=== PATIENT | female | born 1960 | race African-American/Black ===

== ENCOUNTER 2020-08-15 13:45 | Inpatient (IN) | payer MEDICAID, OTHER ==
[~2020-08-15] VITALS: Ht 165.1 cm; Wt 106.1 kg
[2020-08-15] MEDS ORDERED: VANCOMYCIN 1 G PREMIX 200 ML IV ONE (14:00)
[2020-08-15] MEDS ORDERED: PIPERACILLIN/TAZ 3.375G PREMIX 50 ML IV ONE (14:00)
[2020-08-15] MEDS ORDERED: SODIUM CHLORIDE 0.9% 1000ML BAG (SEPSIS BOLUS) IV ONE (14:00)
[2020-08-15 14:54] LABS: BASOPHILS % 0.3 % (0.0-2.0); HEMATOCRIT. 34.5 % (36.0-48.0); HEMOGLOBIN. 11.4 g/dL (12.0-16.0); MEAN CORPUSCULAR HEMOGLOBIN 27.5 pg (28.0-32.0); MEAN PLATELET VOLUME 9.3 fl (7.4-10.4); MONOCYTES % 6.6 % (2.0-8.0); NEUTROPHILS % 67.1 % (40.0-76.0); PLATELET 265 x1000/uL (130-400); RED BLOOD CELL COUNT 4.16 mill/uL (4.2-5.4); RED CELL DISTRIBUTION WIDTH 14.3 % (11.6-14.6)
[2020-08-15 14:57] LABS: CHLORIDE 109 mEq/L (98-107)
[2020-08-15] MEDS ORDERED: LEVETIRACETAM 500MG PREMIX 100 ML IV ONE (16:30)
[2020-08-15] MEDS ORDERED: LORAZEPAM 2MG/ML CPJ IV ONE (16:30)
[2020-08-15 17:32] LABS: ETHANOL BLOOD < 10 mg/dL
[2020-08-15 17:58] LABS: CANNABINOID URINE SCREEN NEGATIVE (NEGATIVE)
[2020-08-15 17:59] LABS: *AMPHETAMINES SCREEN URINE NEGATIVE (NEGATIVE); *BARBITURATES SCREEN URINE NEGATIVE (NEGATIVE); *BENZODIAZEPINES SCREEN URINE NEGATIVE (NEGATIVE); *COCAINE SCREEN URINE NEGATIVE (NEGATIVE); METHADONE URINE SCREEN NEGATIVE (NEGATIVE); OPIATES URINE SCREEN NEGATIVE (NEGATIVE)
[2020-08-15 18:00] LABS: PHENCYCLIDINE URINE SCREEN NEGATIVE (NEGATIVE)
[2020-08-15] MEDS ORDERED: ETOMIDATE 2MG/ML 10ML VIAL IV ONE (18:45)
[2020-08-15] MEDS ORDERED: SUCCINYLCHOLINE CHLORIDE 200MG/10ML IV ONE (18:45)
[2020-08-15] MEDS ORDERED: MIDAZOLAM HCL 100 MG in DEXT 5% WATER 80 ML IV ONE (18:45)
[2020-08-16] MEDS ORDERED: ONDANSETRON HCL 4MG/2ML INJ IV PRN (09:00)
[2020-08-16] MEDS ORDERED: ACETAMINOPHEN 325MG TABLET PO PRN (09:00)
[2020-08-16 10:00] VITALS: BP 94/54
[2020-08-16] MEDS ORDERED: LEVETIRACETAM 500 MG in SODIUM CHLORIDE 0.9% 100 ML IV SCH (11:00)
[2020-08-16 12:00] VITALS: BP 113/39
[2020-08-16] MEDS: LEVETIRACETAM 500MG PREMIX 100 ML IV SCH ×2 (12:45→20:58)
[2020-08-16] MEDS: PIPERACILLIN/TAZOBACTAM 3.375 G in DEXT 5% WATER 100 ML IV SCH ×2 (12:46→17:41)
[2020-08-16] MEDS: ENOXAPARIN 40MG/0.4ML SYR SUBCUT SCH (12:51)
[2020-08-16 14:40] LABS: CLARITY URINE CLOUDY (CLEAR); COLOR URINE YELLOW (YELLOW); KETONES URINE 2+ (NEGATIVE); LEUKOCYTE ESTERASE URINE 1+ (NEGATIVE); NITRITE URINE NEGATIVE (NEGATIVE); OCCULT BLOOD URINE 2+ (NEGATIVE); PROTEIN URINE TRACE (NEGATIVE); SPECIFIC GRAVITY URINE 1.019 (1.005-1.030); UROBILINOGEN URINE 0.2 E.U./dL (0.2-1.0)
[2020-08-16 16:00] VITALS: BP 112/49
[2020-08-16] MEDS ORDERED: LORAZEPAM 2MG/ML CPJ IM PRN (19:30)
[2020-08-16] MEDS ORDERED: LORAZEPAM 2MG/ML CPJ IV PRN (19:45)
[2020-08-16 20:00] VITALS: BP 100/59
[2020-08-17] VITALS: BP 109/50
[2020-08-17] MEDS: PIPERACILLIN/TAZOBACTAM 3.375 G in DEXT 5% WATER 100 ML IV SCH ×5 (01:39→23:04)
[2020-08-17 04:00] VITALS: BP 116/62
[2020-08-17 08:00] VITALS: BP 105/42
[2020-08-17] MEDS: ENOXAPARIN 40MG/0.4ML SYR SUBCUT SCH (08:49)
[2020-08-17] MEDS: LEVETIRACETAM 500MG PREMIX 100 ML IV SCH ×2 (08:49→20:39)
[2020-08-17 16:00] VITALS: BP 106/67
[2020-08-17 16:33] LABS: BASOPHILS % 0.3 % (0.0-2.0); HEMATOCRIT. 35.3 % (36.0-48.0); HEMOGLOBIN. 11.7 g/dL (12.0-16.0); LYMPHOCYTES % 28.4 % (20.0-50.0); MEAN CORPUSCULAR HEMOGLOBIN 27.1 pg (28.0-32.0); MEAN CORPUSCULAR VOLUME 82.1 fL (81.0-99.0); MONOCYTES % 10.7 % (2.0-8.0); NEUTROPHILS % 60.6 % (40.0-76.0); PLATELET 266 x1000/uL (130-400); RED CELL DISTRIBUTION WIDTH 14.4 % (11.6-14.6)
[2020-08-17 17:05] LABS: CHLORIDE 108 mEq/L (98-107)
[2020-08-17 20:00] VITALS: BP 138/45
[2020-08-17] MEDS: RISPERIDONE 1MG TABLET PO SCH (20:39)
[2020-08-18] VITALS: BP 139/68
[2020-08-18 04:00] VITALS: BP 144/68
[2020-08-18] MEDS: PIPERACILLIN/TAZOBACTAM 3.375 G in DEXT 5% WATER 100 ML IV SCH ×4 (05:37→23:56)
[2020-08-18 08:00] VITALS: BP 130/71
[2020-08-18] MEDS: RISPERIDONE 1MG TABLET PO SCH (08:53)
[2020-08-18] MEDS: ENOXAPARIN 40MG/0.4ML SYR SUBCUT SCH (08:54)
[2020-08-18] MEDS: LEVETIRACETAM 500MG PREMIX 100 ML IV SCH ×2 (08:54→20:08)
[2020-08-18 12:00] VITALS: BP 127/69
[2020-08-18 20:00] VITALS: BP 148/60
[2020-08-19] VITALS: BP 140/64
[2020-08-19 04:00] VITALS: BP 156/90
[2020-08-19] MEDS: PIPERACILLIN/TAZOBACTAM 3.375 G in DEXT 5% WATER 100 ML IV SCH ×3 (05:07→17:00)
[2020-08-19 08:00] VITALS: BP 119/63
[2020-08-19] MEDS: ENOXAPARIN 40MG/0.4ML SYR SUBCUT SCH (08:09)
[2020-08-19] MEDS: RISPERIDONE 1MG TABLET PO SCH (08:14)
[2020-08-19] MEDS: LEVETIRACETAM 500MG PREMIX 100 ML IV SCH ×2 (08:14→21:55)
[2020-08-19 12:00] VITALS: BP 159/72
[2020-08-19] MEDS ORDERED: DEXTROSE 50% WATER 50ML SYRINGE IV PRN (14:15)
[2020-08-19 16:00] VITALS: BP 137/83
[2020-08-19] MEDS: BLOOD SUGAR DIAGNOSTIC STRIP TEST SCH ×2 (16:59→21:57)
[2020-08-19] MEDS: INSULIN LISPRO 100 UNITS/ML SUBCUT SCH ×2 (17:21→21:56)
[2020-08-19] MEDS ORDERED: INSULIN GLARGINE UD 100 UNITS/ML SYR SUBCUT NR (19:30)
[2020-08-19 20:00] VITALS: BP 142/73
[2020-08-20] VITALS: BP 158/72
[2020-08-20] MEDS: PIPERACILLIN/TAZOBACTAM 3.375 G in DEXT 5% WATER 100 ML IV SCH ×4 (01:02→18:14)
[2020-08-20 04:00] VITALS: BP 148/77
[2020-08-20] MEDS: INSULIN LISPRO 100 UNITS/ML SUBCUT SCH ×4 (07:07→23:11)
[2020-08-20] MEDS: BLOOD SUGAR DIAGNOSTIC STRIP TEST SCH ×4 (07:07→21:00)
[2020-08-20] MEDS: RISPERIDONE 1MG TABLET PO SCH (09:52)
[2020-08-20] MEDS: LEVETIRACETAM 500MG PREMIX 100 ML IV SCH ×2 (09:52→23:08)
[2020-08-20] MEDS: ENOXAPARIN 40MG/0.4ML SYR SUBCUT SCH (09:52)
[2020-08-20 12:00] VITALS: BP_SYST 138; BP_SYST 98; BP_DIAS 57; BP_DIAS 68
[2020-08-20 16:00] VITALS: BP 98/68
[2020-08-20 20:00] VITALS: BP 132/62
[2020-08-21] VITALS: BP 131/74
[2020-08-21] MEDS: PIPERACILLIN/TAZOBACTAM 3.375 G in DEXT 5% WATER 100 ML IV SCH ×2 (02:13→06:47)
[2020-08-21 04:00] VITALS: BP 144/69
[2020-08-21] MEDS: BLOOD SUGAR DIAGNOSTIC STRIP TEST SCH ×4 (06:34→21:00)
[2020-08-21] MEDS: INSULIN LISPRO 100 UNITS/ML SUBCUT SCH ×4 (06:47→23:30)
[2020-08-21 07:48] VITALS: BP 151/67
[2020-08-21] MEDS: RISPERIDONE 1MG TABLET PO SCH ×2 (09:02→17:36)
[2020-08-21] MEDS: LEVETIRACETAM 500MG PREMIX 100 ML IV SCH (09:03)
[2020-08-21] MEDS: ENOXAPARIN 30MG/0.3ML SYR SUBCUT SCH ×2 (09:03→21:59)
[2020-08-21 12:00] VITALS: BP_SYST 156; BP_SYST 163; BP_DIAS 77; BP_DIAS 78
[2020-08-21 16:00] VITALS: BP 129/68
[2020-08-21 20:00] VITALS: BP 138/64
[2020-08-21] MEDS: LEVETIRACETAM 500MG TABLET PO SCH (21:59)
[2020-08-22] VITALS: BP 140/77
[2020-08-22 04:00] VITALS: BP 132/50
[2020-08-22] MEDS: BLOOD SUGAR DIAGNOSTIC STRIP TEST SCH ×2 (07:40→11:43)
[2020-08-22 08:00] VITALS: BP 130/60
[2020-08-22] MEDS: RISPERIDONE 1MG TABLET PO SCH (08:55)
[2020-08-22] MEDS: LEVETIRACETAM 500MG TABLET PO SCH (08:55)
[2020-08-22] MEDS: INSULIN LISPRO 100 UNITS/ML SUBCUT SCH ×2 (08:56→12:19)
[2020-08-22] MEDS: ENOXAPARIN 30MG/0.3ML SYR SUBCUT SCH (08:58)
[2020-08-22 11:47] VITALS: BP 130/60
== END 2020-08-22 14:29 | DRG 720 ==
LOC: ER 14:00 → MICUSO 17:51 → 7WST 08-16 08:09
PROVIDERS: ADMIT Internal Medicine; ATTEND Internal Medicine
DX: A41.9 Sepsis, unspecified organism (principal); U07.1 COVID-19; J69.0 Pneumonitis due to inhalation of food and vomit; G93.41 Metabolic encephalopathy; E44.1 Mild protein-calorie malnutrition; E87.2 Acidosis; E87.8 Other disorders of electrolyte and fluid balance, not elsewhere classified; F20.9 Schizophrenia, unspecified; G40.909 Epilepsy, unspecified, not intractable, without status epilepticus; E03.9 Hypothyroidism, unspecified; E11.9 Type 2 diabetes mellitus without complications; F17.200 Nicotine dependence, unspecified, uncomplicated; I10 Essential (primary) hypertension; Z68.38 Body mass index [BMI] 38.0-38.9, adult; Z79.899 Other long term (current) drug therapy
CPT/HCPCS: 36415; 71045; 80048; 80053; 80305; 80307; 80320; 81003; 82140; 82962; 83036; 83605; 83880; 84443; 84484; 85025; 86850; 86900; 93005; 99285; J1650; J1815; J1953; J2060; J2250; J2543; J3370; J7030; J7040; J7050; J7060; U0003; G0480

== ENCOUNTER 2021-05-10 23:49 | Emergency (ER) | payer MEDICAID, OTHER ==
[~2021-05-10] VITALS: Ht 157.5 cm; Wt 77.0 kg
[2021-05-11] MEDS ORDERED: CLONAZEPAM 0.5MG TABLET PO ONE (11:45)
[2021-05-11 12:00] VITALS: BP 125/77
== END 2021-05-11 12:32 ==
LOC: ER 23:49
DX: S60.450A Superficial foreign body of right index finger, initial encounter (principal); S60.451A Superficial foreign body of left index finger, initial encounter; S60.455A Superficial foreign body of left ring finger, initial encounter; F41.9 Anxiety disorder, unspecified; E11.9 Type 2 diabetes mellitus without complications; I12.9 Hypertensive chronic kidney disease with stage 1 through stage 4 chronic kidney disease, or unspecified chronic kidney disease; N18.9 Chronic kidney disease, unspecified; F20.9 Schizophrenia, unspecified; E03.9 Hypothyroidism, unspecified; Z86.19 Personal history of other infectious and parasitic diseases; W45.8XXA Other foreign body or object entering through skin, initial encounter; Y93.89 Activity, other specified; Y92.018 Other place in single-family (private) house as the place of occurrence of the external cause
CPT/HCPCS: 99283

== ENCOUNTER 2022-06-10 09:31 | Emergency (ER) | payer MEDICAID, OTHER ==
[~2022-06-10] VITALS: Ht 165.1 cm; Wt 75.0 kg
[2022-06-10] MEDS ORDERED: LEVETIRACETAM 500MG PREMIX 100 ML IV ONE (10:00)
[2022-06-10] MEDS ORDERED: SODIUM CHLORIDE 0.9% 1,000 ML IV ONE (10:00)
[2022-06-10 10:22] LABS: BASOPHILS % 0.2 % (0.0-2.0); HEMATOCRIT. 30.4 % (36.0-48.0); HEMOGLOBIN. 9.7 g/dL (12.0-16.0); LYMPHOCYTES % 23.4 % (20.0-50.0); MEAN CORPUSCULAR HEMOGLOBIN 28.1 pg (28.0-32.0); MEAN CORPUSCULAR VOLUME 87.9 fL (81.0-99.0); MEAN PLATELET VOLUME 9.5 fl (7.4-10.4); NEUTROPHILS % 70.4 % (40.0-76.0); PLATELET 273 x1000/uL (130-400); RED BLOOD CELL COUNT 3.46 mill/uL (4.2-5.4); RED CELL DISTRIBUTION WIDTH 15.5 % (11.6-14.6)
[2022-06-10 10:23] LABS: CHLORIDE 112 mEq/L (98-107)
[2022-06-10 13:47] LABS: CLARITY URINE CLEAR (CLEAR); COLOR URINE YELLOW (YELLOW); KETONES URINE NEGATIVE (NEGATIVE); LEUKOCYTE ESTERASE URINE 1+ (NEGATIVE); NITRITE URINE NEGATIVE (NEGATIVE); OCCULT BLOOD URINE NEGATIVE (NEGATIVE); PROTEIN URINE NEGATIVE (NEGATIVE); SPECIFIC GRAVITY URINE 1.017 (1.005-1.030); UROBILINOGEN URINE 0.2 E.U./dL (0.2-1.0)
[2022-06-10] MEDS ORDERED: CEFTRIAXONE 1 G PREMIX 50 ML IV ONE (14:00)
[2022-06-10 15:15] VITALS: BP 105/52
== END 2022-06-10 19:06 | disposition short-term general hospital (02) ==
LOC: ER 09:31
DX: G93.40 Encephalopathy, unspecified (principal); E86.0 Dehydration; N30.00 Acute cystitis without hematuria; F41.9 Anxiety disorder, unspecified; E11.9 Type 2 diabetes mellitus without complications; I10 Essential (primary) hypertension; Z87.891 Personal history of nicotine dependence
CPT/HCPCS: 36415; 70450; 71045; 80053; 81003; 82962; 85025; 87086; 93005; 96365; 96367; 99285; J0696; J1953; J7030

== ENCOUNTER 2022-06-17 08:59 | Inpatient (IN) | payer OTHER ==
[~2022-06-17] VITALS: Ht 162.6 cm; Wt 87.5 kg
[2022-06-17] MEDS ORDERED: SODIUM CHLORIDE 0.9% 1,000 ML IV ONE ×2 (09:15→09:30)
[2022-06-17 09:42] LABS: HEMATOCRIT 31.5 % (36.0-48.0); HEMOGLOBIN 10.6 g/dL (12.0-16.0); MEAN CORPUSCULAR HEMOGLOBIN 28.3 pg (28.0-32.0); MEAN CORPUSCULAR VOLUME 84.3 fL (81.0-99.0); PLATELET 339 x1000/uL (130-400); RED BLOOD CELL COUNT 3.74 mill/uL (4.2-5.4); RED CELL DISTRIBUTION WIDTH 14.7 % (11.6-14.6)
[2022-06-17 09:44] LABS: CHLORIDE 104 mEq/L (98-107)
[2022-06-17 09:48] LABS: BG BASE EXCESS -6.2 mmol/L (-2.0-2.0); BG CARBOXYHEMOGLOBIN 0.1 % (0.5-1.5); BG DEOXYHEMOGLOBIN 5.4 % (0.0-5.0); BG FRACTION INSPIRED OXYGEN 100; BG HCO3 ACT 18.6 mmol/L (22.0-26.0); BG METHEMOGLOBIN 0.5 % (0.0-1.5); BG OXYGEN SATURATION 94.6 % (92.0-98.5); BG PCO2 34.2 mmHg (35.0-45.0); BG PH 7.354 (7.350-7.450); BG PO2 71.4 mmHg (75.0-100.0); BG SAMPLE SITE LEFT RADIAL; BG TOTAL HEMOGLOBIN 9.5 g/dL (12.0-18.0); BG VENT MODE MASK - NRB
[2022-06-17 10:36] LABS: CLARITY URINE CLEAR (CLEAR); COLOR URINE DARK YELLOW (YELLOW); KETONES URINE TRACE (NEGATIVE); LEUKOCYTE ESTERASE URINE TRACE (NEGATIVE); NITRITE URINE NEGATIVE (NEGATIVE); OCCULT BLOOD URINE NEGATIVE (NEGATIVE); PROTEIN URINE TRACE (NEGATIVE); SPECIFIC GRAVITY URINE 1.021 (1.005-1.030); UROBILINOGEN URINE 0.2 E.U./dL (0.2-1.0)
[2022-06-17] MEDS ORDERED: SODIUM CHLORIDE 0.9% 500 ML IV ONE (11:45)
[2022-06-17] MEDS ORDERED: VANCOMYCIN 1G PREMIX 200 ML IV SCH (11:45)
[2022-06-17] MEDS ORDERED: PIPERACILLIN/TAZOBACTAM 3.375GM/50ML PREMIX IV ONE (11:45)
[2022-06-17] MEDS ORDERED: INSULIN REGULAR (HUMULIN R) 300UNITS/3ML VIAL IV ONE (12:00)
[2022-06-17 20:00] VITALS: BP 110/70
[2022-06-17 20:47] VITALS: BP 131/54
[2022-06-17] MEDS ORDERED: DEXTROSE 50% WATER 50ML SYRINGE IV PRN (21:30)
[2022-06-17] MEDS: INSULIN GLARGINE 100 UNITS/ML SUBCUT SCH (21:42)
[2022-06-17] MEDS: PIPERACILLIN/TAZOBACTAM 3.375 G in DEXTROSE 5% WATER 50 ML IV SCH (22:33)
[2022-06-18] VITALS: BP 118/68
[2022-06-18] MEDS ORDERED: LORAZEPAM 2MG/ML CPJ IV PRN (03:00)
[2022-06-18 04:00] VITALS: BP 112/64
[2022-06-18 06:04] LABS: BASOPHILS % 0.2 % (0.0-2.0); HEMOGLOBIN. 9.1 g/dL (12.0-16.0); LYMPHOCYTES % 10.6 % (20.0-50.0); MEAN CORPUSCULAR HEMOGLOBIN 27.2 pg (28.0-32.0); MEAN CORPUSCULAR VOLUME 84.3 fL (81.0-99.0); MEAN PLATELET VOLUME 9.3 fl (7.4-10.4); MONOCYTES % 5.7 % (2.0-8.0); NEUTROPHILS % 83.5 % (40.0-76.0); PLATELET 319 x1000/uL (130-400); RED BLOOD CELL COUNT 3.33 mill/uL (4.2-5.4); RED CELL DISTRIBUTION WIDTH 14.5 % (11.6-14.6)
[2022-06-18] MEDS: INSULIN LISPRO 100 UNITS/ML SUBCUT SCH ×4 (06:10→20:10)
[2022-06-18] MEDS: BLOOD SUGAR DIAGNOSTIC STRIP TEST SCH ×4 (06:10→20:10)
[2022-06-18 08:00] VITALS: BP 116/69
[2022-06-18 08:31] LABS: CHLORIDE 109 mEq/L (98-107)
[2022-06-18] MEDS: ASPIRIN 81MG TABLET PO SCH (08:57)
[2022-06-18] MEDS: PIPERACILLIN/TAZOBACTAM 3.375 G in DEXTROSE 5% WATER 50 ML IV SCH ×4 (08:57→20:11)
[2022-06-18] MEDS ORDERED: PIPERACILLIN/TAZOBACTAM 3.375GM/50ML PREMIX IV SCH (09:00)
[2022-06-18] MEDS ORDERED: VANCOMYCIN 500MG PREMIX 100 ML IV SCH (09:00)
[2022-06-18] MEDS: INSULIN GLARGINE 100 UNITS/ML SUBCUT SCH ×2 (11:04→20:15)
[2022-06-18 12:00] VITALS: BP 109/48
[2022-06-18 16:00] VITALS: BP 135/62
[2022-06-18 20:00] VITALS: BP 123/42
[2022-06-18] MEDS: ATORVASTATIN CALCIUM 40MG TABLET PO SCH (20:11)
[2022-06-19] VITALS: BP 131/51
[2022-06-19 04:00] VITALS: BP 128/77
[2022-06-19] MEDS: INSULIN LISPRO 100 UNITS/ML SUBCUT SCH ×4 (05:45→20:10)
[2022-06-19] MEDS: PIPERACILLIN/TAZOBACTAM 3.375 G in DEXTROSE 5% WATER 50 ML IV SCH ×3 (05:45→20:09)
[2022-06-19] MEDS: BLOOD SUGAR DIAGNOSTIC STRIP TEST SCH ×4 (05:45→20:08)
[2022-06-19 08:00] VITALS: BP 123/58
[2022-06-19] MEDS: ASPIRIN 81MG TABLET PO SCH (09:00)
[2022-06-19] MEDS: INSULIN GLARGINE 100 UNITS/ML SUBCUT SCH ×2 (10:00→20:11)
[2022-06-19 12:00] VITALS: BP 124/45
[2022-06-19] MEDS: VANCOMYCIN 750MG PREMIX 150 ML IV SCH (15:19)
[2022-06-19 16:00] VITALS: BP 122/65
[2022-06-19 17:03] LABS: BASOPHILS % 0.5 % (0.0-2.0); HEMOGLOBIN. 8.8 g/dL (12.0-16.0); LYMPHOCYTES % 15.3 % (20.0-50.0); MEAN CORPUSCULAR HEMOGLOBIN 27.3 pg (28.0-32.0); MEAN CORPUSCULAR VOLUME 83.5 fL (81.0-99.0); MEAN PLATELET VOLUME 9.5 fl (7.4-10.4); MONOCYTES % 6.2 % (2.0-8.0); PLATELET 358 x1000/uL (130-400); RED BLOOD CELL COUNT 3.23 mill/uL (4.2-5.4); RED CELL DISTRIBUTION WIDTH 14.1 % (11.6-14.6)
[2022-06-19 20:00] VITALS: BP 91/62
[2022-06-19] MEDS: ATORVASTATIN CALCIUM 40MG TABLET PO SCH (20:09)
[2022-06-20] VITALS: BP 123/51
[2022-06-20 04:00] VITALS: BP 132/68
[2022-06-20] MEDS: BLOOD SUGAR DIAGNOSTIC STRIP TEST SCH ×4 (05:39→20:55)
[2022-06-20] MEDS: PIPERACILLIN/TAZOBACTAM 3.375 G in DEXTROSE 5% WATER 50 ML IV SCH ×3 (05:52→20:57)
[2022-06-20] MEDS: INSULIN LISPRO 100 UNITS/ML SUBCUT SCH ×4 (05:53→20:54)
[2022-06-20] MEDS: VANCOMYCIN 750MG PREMIX 150 ML IV SCH (05:54)
[2022-06-20 07:31] LABS: BASOPHILS % 0.3 % (0.0-2.0); HEMATOCRIT. 28.6 % (36.0-48.0); HEMOGLOBIN. 9.4 g/dL (12.0-16.0); LYMPHOCYTES % 11.8 % (20.0-50.0); MEAN CORPUSCULAR HEMOGLOBIN 27.6 pg (28.0-32.0); MEAN CORPUSCULAR VOLUME 84.2 fL (81.0-99.0); MEAN PLATELET VOLUME 9.4 fl (7.4-10.4); MONOCYTES % 5.1 % (2.0-8.0); NEUTROPHILS % 82.8 % (40.0-76.0); PLATELET 355 x1000/uL (130-400); RED CELL DISTRIBUTION WIDTH 14.2 % (11.6-14.6)
[2022-06-20 08:00] VITALS: BP 109/37
[2022-06-20] MEDS: ASPIRIN 81MG TABLET PO SCH (09:06)
[2022-06-20] MEDS: INSULIN GLARGINE 100 UNITS/ML SUBCUT SCH ×2 (09:08→20:55)
[2022-06-20 12:00] VITALS: BP 145/70
[2022-06-20 16:00] VITALS: BP 117/48
[2022-06-20 20:00] VITALS: BP 96/58
[2022-06-20] MEDS: ATORVASTATIN CALCIUM 40MG TABLET PO SCH (20:54)
[2022-06-21] VITALS: BP 117/52
[2022-06-21] MEDS: VANCOMYCIN 750MG PREMIX 150 ML IV SCH (01:14)
[2022-06-21 04:00] VITALS: BP 118/49
[2022-06-21] MEDS: INSULIN LISPRO 100 UNITS/ML SUBCUT SCH ×4 (05:31→20:11)
[2022-06-21] MEDS: PIPERACILLIN/TAZOBACTAM 3.375 G in DEXTROSE 5% WATER 50 ML IV SCH ×3 (05:31→20:04)
[2022-06-21] MEDS: BLOOD SUGAR DIAGNOSTIC STRIP TEST SCH ×4 (05:31→20:04)
[2022-06-21 08:00] VITALS: BP 123/63
[2022-06-21] MEDS: INSULIN GLARGINE 100 UNITS/ML SUBCUT SCH ×3 (10:00→20:12)
[2022-06-21] MEDS: ASPIRIN 81MG TABLET PO SCH (10:14)
[2022-06-21] MEDS: VANCOMYCIN 1G PREMIX 200 ML IV SCH ×2 (11:16→20:03)
[2022-06-21 12:00] VITALS: BP 111/63
[2022-06-21 16:30] VITALS: BP 128/56
[2022-06-21] MEDS: ACETAMINOPHEN 325MG TABLET PO PRN (18:01)
[2022-06-21 20:00] VITALS: BP 105/49
[2022-06-21] MEDS: ATORVASTATIN CALCIUM 40MG TABLET PO SCH (20:04)
[2022-06-22] VITALS: BP 109/80
[2022-06-22 04:00] VITALS: BP 117/65
[2022-06-22 05:09] LABS: HIV SCREEN 4G Non Reactive (Non Reactive)
[2022-06-22] MEDS: BLOOD SUGAR DIAGNOSTIC STRIP TEST SCH ×4 (05:26→21:37)
[2022-06-22] MEDS: INSULIN LISPRO 100 UNITS/ML SUBCUT SCH ×4 (05:26→21:46)
[2022-06-22] MEDS: PIPERACILLIN/TAZOBACTAM 3.375 G in DEXTROSE 5% WATER 50 ML IV SCH ×2 (05:35→16:14)
[2022-06-22 08:00] VITALS: BP 117/66
[2022-06-22] MEDS: ASPIRIN 81MG TABLET PO SCH (09:03)
[2022-06-22] MEDS: VANCOMYCIN 1G PREMIX 200 ML IV SCH ×2 (09:03→22:37)
[2022-06-22] MEDS: INSULIN GLARGINE 100 UNITS/ML SUBCUT SCH ×2 (09:14→21:45)
[2022-06-22 12:00] VITALS: BP 118/67
[2022-06-22 16:00] VITALS: BP 111/62
[2022-06-22 20:00] VITALS: BP 111/58
[2022-06-22] MEDS: ATORVASTATIN CALCIUM 40MG TABLET PO SCH (21:32)
[2022-06-23 04:00] VITALS: BP 123/80
[2022-06-23] MEDS: BLOOD SUGAR DIAGNOSTIC STRIP TEST SCH ×4 (06:57→21:56)
[2022-06-23] MEDS: INSULIN LISPRO 100 UNITS/ML SUBCUT SCH ×4 (06:57→22:10)
[2022-06-23 08:00] VITALS: BP 123/49
[2022-06-23] MEDS: ASPIRIN 81MG TABLET PO SCH (08:59)
[2022-06-23] MEDS: INSULIN GLARGINE 100 UNITS/ML SUBCUT SCH ×2 (09:00→22:11)
[2022-06-23 12:00] VITALS: BP 114/58
[2022-06-23 16:00] VITALS: BP 134/64
[2022-06-23 20:00] VITALS: BP 147/71
[2022-06-23] MEDS: ATORVASTATIN CALCIUM 40MG TABLET PO SCH (22:09)
[2022-06-24] VITALS: BP 112/50
[2022-06-24 04:00] VITALS: BP 123/52
[2022-06-24] MEDS: INSULIN LISPRO 100 UNITS/ML SUBCUT SCH ×4 (07:05→21:19)
[2022-06-24] MEDS: BLOOD SUGAR DIAGNOSTIC STRIP TEST SCH ×4 (07:05→20:16)
[2022-06-24] MEDS: ACETAMINOPHEN 325MG TABLET PO PRN ×2 (07:42→17:20)
[2022-06-24 08:00] VITALS: BP 111/50
[2022-06-24] MEDS: ASPIRIN 81MG TABLET PO SCH (08:15)
[2022-06-24] MEDS: INSULIN GLARGINE 100 UNITS/ML SUBCUT SCH ×2 (10:31→21:18)
[2022-06-24 12:00] VITALS: BP 113/54
[2022-06-24 16:00] VITALS: BP 132/60
[2022-06-24 20:00] VITALS: BP 120/55
[2022-06-24] MEDS: CEFEPIME 2,000 MG in DEXT 5% WATER 100 ML IV SCH (20:14)
[2022-06-24] MEDS: ATORVASTATIN CALCIUM 40MG TABLET PO SCH (21:17)
[2022-06-25] VITALS: BP 118/66
[2022-06-25 04:00] VITALS: BP 117/56
[2022-06-25] MEDS: INSULIN LISPRO 100 UNITS/ML SUBCUT SCH ×4 (06:12→20:51)
[2022-06-25] MEDS: BLOOD SUGAR DIAGNOSTIC STRIP TEST SCH ×4 (06:12→20:50)
[2022-06-25 08:00] VITALS: BP 127/59
[2022-06-25] MEDS: CEFEPIME 2,000 MG in DEXT 5% WATER 100 ML IV SCH ×2 (08:26→20:50)
[2022-06-25] MEDS: ASPIRIN 81MG TABLET PO SCH (10:20)
[2022-06-25] MEDS: INSULIN GLARGINE 100 UNITS/ML SUBCUT SCH ×2 (10:21→20:52)
[2022-06-25 12:00] VITALS: BP 117/66
[2022-06-25 16:00] VITALS: BP 113/59
[2022-06-25 16:46] LABS: BASOPHILS % 0.1 % (0.0-2.0); HEMATOCRIT. 23.4 % (36.0-48.0); HEMOGLOBIN. 7.8 g/dL (12.0-16.0); LYMPHOCYTES % 9.4 % (20.0-50.0); MEAN CORPUSCULAR HEMOGLOBIN 27.4 pg (28.0-32.0); MEAN CORPUSCULAR VOLUME 82.9 fL (81.0-99.0); MEAN PLATELET VOLUME 8.6 fl (7.4-10.4); NEUTROPHILS % 84.5 % (40.0-76.0); PLATELET 427 x1000/uL (130-400); RED BLOOD CELL COUNT 2.82 mill/uL (4.2-5.4); RED CELL DISTRIBUTION WIDTH 14.8 % (11.6-14.6)
[2022-06-25 20:00] VITALS: BP 146/70
[2022-06-25] MEDS: ATORVASTATIN CALCIUM 40MG TABLET PO SCH (20:49)
[2022-06-26] VITALS: BP 128/60
[2022-06-26 04:00] VITALS: BP 128/66
[2022-06-26] MEDS: BLOOD SUGAR DIAGNOSTIC STRIP TEST SCH ×4 (06:23→21:14)
[2022-06-26] MEDS: INSULIN LISPRO 100 UNITS/ML SUBCUT SCH ×4 (06:24→21:00)
[2022-06-26 07:16] LABS: BASOPHILS % 0.4 % (0.0-2.0); HEMATOCRIT. 22.4 % (36.0-48.0); HEMOGLOBIN. 7.4 g/dL (12.0-16.0); LYMPHOCYTES % 9.2 % (20.0-50.0); MEAN CORPUSCULAR HEMOGLOBIN 27.2 pg (28.0-32.0); MEAN CORPUSCULAR VOLUME 82.4 fL (81.0-99.0); MEAN PLATELET VOLUME 8.5 fl (7.4-10.4); MONOCYTES % 4.9 % (2.0-8.0); NEUTROPHILS % 85.5 % (40.0-76.0); PLATELET 458 x1000/uL (130-400); RED BLOOD CELL COUNT 2.72 mill/uL (4.2-5.4); RED CELL DISTRIBUTION WIDTH 14.6 % (11.6-14.6)
[2022-06-26 08:00] VITALS: BP 106/53
[2022-06-26 10:14] LABS: CHLORIDE 109 mEq/L (98-107)
[2022-06-26] MEDS: CEFEPIME 2,000 MG in DEXT 5% WATER 100 ML IV SCH ×2 (10:46→21:15)
[2022-06-26] MEDS: ASPIRIN 81MG TABLET PO SCH (10:46)
[2022-06-26] MEDS: INSULIN GLARGINE 100 UNITS/ML SUBCUT SCH ×2 (10:55→21:25)
[2022-06-26 12:00] VITALS: BP 123/68
[2022-06-26 16:00] VITALS: BP 113/52
[2022-06-26 20:00] VITALS: BP 131/62
[2022-06-26] MEDS: ATORVASTATIN CALCIUM 40MG TABLET PO SCH (21:15)
[2022-06-27 00:10] VITALS: BP 118/63
[2022-06-27 04:00] VITALS: BP 94/49
[2022-06-27 06:50] LABS: BASOPHILS % 0.3 % (0.0-2.0); HEMATOCRIT. 22.6 % (36.0-48.0); HEMOGLOBIN. 7.6 g/dL (12.0-16.0); LYMPHOCYTES % 8.7 % (20.0-50.0); MEAN CORPUSCULAR HEMOGLOBIN 27.7 pg (28.0-32.0); MEAN CORPUSCULAR VOLUME 82.5 fL (81.0-99.0); MEAN PLATELET VOLUME 8.4 fl (7.4-10.4); MONOCYTES % 5.1 % (2.0-8.0); NEUTROPHILS % 85.9 % (40.0-76.0); PLATELET 505 x1000/uL (130-400); RED BLOOD CELL COUNT 2.73 mill/uL (4.2-5.4); RED CELL DISTRIBUTION WIDTH 14.9 % (11.6-14.6)
[2022-06-27] MEDS: BLOOD SUGAR DIAGNOSTIC STRIP TEST SCH ×4 (07:10→21:00)
[2022-06-27] MEDS: INSULIN LISPRO 100 UNITS/ML SUBCUT SCH ×4 (07:40→21:00)
[2022-06-27 08:00] VITALS: BP 119/72
[2022-06-27] MEDS: ASPIRIN 81MG TABLET PO SCH (10:54)
[2022-06-27] MEDS: CEFEPIME 2,000 MG in DEXT 5% WATER 100 ML IV SCH ×2 (10:55→20:36)
[2022-06-27] MEDS: INSULIN GLARGINE 100 UNITS/ML SUBCUT SCH ×2 (11:24→23:03)
[2022-06-27 12:00] VITALS: BP 112/63
[2022-06-27 16:00] VITALS: BP 110/66
[2022-06-27 20:00] VITALS: BP 113/58
[2022-06-27] MEDS: ATORVASTATIN CALCIUM 40MG TABLET PO SCH (21:56)
[2022-06-28] VITALS: BP 131/64
[2022-06-28 04:00] VITALS: BP 112/64
[2022-06-28] MEDS: BLOOD SUGAR DIAGNOSTIC STRIP TEST SCH ×4 (06:02→21:13)
[2022-06-28] MEDS: INSULIN LISPRO 100 UNITS/ML SUBCUT SCH ×4 (06:29→21:21)
[2022-06-28 07:00] LABS: BASOPHILS % 0.5 % (0.0-2.0); HEMATOCRIT. 21.4 % (36.0-48.0); HEMOGLOBIN. 7.2 g/dL (12.0-16.0); MEAN CORPUSCULAR HEMOGLOBIN 27.6 pg (28.0-32.0); MEAN CORPUSCULAR VOLUME 81.8 fL (81.0-99.0); MEAN PLATELET VOLUME 8.3 fl (7.4-10.4); MONOCYTES % 5.2 % (2.0-8.0); NEUTROPHILS % 85.3 % (40.0-76.0); PLATELET 553 x1000/uL (130-400); RED BLOOD CELL COUNT 2.62 mill/uL (4.2-5.4); RED CELL DISTRIBUTION WIDTH 15.1 % (11.6-14.6)
[2022-06-28 08:00] VITALS: BP 119/47
[2022-06-28] MEDS: CEFEPIME 2,000 MG in DEXT 5% WATER 100 ML IV SCH ×2 (09:54→21:19)
[2022-06-28] MEDS: ASPIRIN 81MG TABLET PO SCH (09:54)
[2022-06-28] MEDS: INSULIN GLARGINE 100 UNITS/ML SUBCUT SCH ×2 (09:56→21:23)
[2022-06-28 12:00] VITALS: BP 130/56
[2022-06-28 16:00] VITALS: BP 147/56
[2022-06-28 20:00] VITALS: BP 126/57
[2022-06-28] MEDS: ATORVASTATIN CALCIUM 40MG TABLET PO SCH (21:17)
[2022-06-29] VITALS: BP 115/47
[2022-06-29 04:00] VITALS: BP 139/64
[2022-06-29] MEDS: BLOOD SUGAR DIAGNOSTIC STRIP TEST SCH ×3 (06:12→21:27)
[2022-06-29] MEDS: INSULIN LISPRO 100 UNITS/ML SUBCUT SCH ×3 (06:12→21:37)
[2022-06-29 07:18] LABS: BASOPHILS % 0.3 % (0.0-2.0); HEMATOCRIT. 21.8 % (36.0-48.0); HEMOGLOBIN. 7.3 g/dL (12.0-16.0); LYMPHOCYTES % 14.6 % (20.0-50.0); MEAN CORPUSCULAR HEMOGLOBIN 27.7 pg (28.0-32.0); MEAN CORPUSCULAR VOLUME 82.2 fL (81.0-99.0); MONOCYTES % 6.7 % (2.0-8.0); NEUTROPHILS % 78.4 % (40.0-76.0); PLATELET 635 x1000/uL (130-400); RED BLOOD CELL COUNT 2.65 mill/uL (4.2-5.4); RED CELL DISTRIBUTION WIDTH 15.2 % (11.6-14.6)
[2022-06-29 08:05] VITALS: BP 112/41
[2022-06-29] MEDS: ASPIRIN 81MG TABLET PO SCH (09:46)
[2022-06-29] MEDS: CEFEPIME 2,000 MG in DEXT 5% WATER 100 ML IV SCH ×2 (09:46→20:15)
[2022-06-29] MEDS: INSULIN GLARGINE 100 UNITS/ML SUBCUT SCH ×2 (10:00→21:38)
[2022-06-29 12:31] VITALS: BP 113/52
[2022-06-29 16:00] VITALS: BP 110/54
[2022-06-29 20:00] VITALS: BP 123/57
[2022-06-29] MEDS: ATORVASTATIN CALCIUM 40MG TABLET PO SCH (20:14)
[2022-06-30] VITALS (7 sets, daily range): BP systolic 106–123; BP diastolic 47–64
[2022-06-30] MEDS: BLOOD SUGAR DIAGNOSTIC STRIP TEST SCH ×4 (06:57→20:47)
[2022-06-30] MEDS: INSULIN LISPRO 100 UNITS/ML SUBCUT SCH ×4 (06:57→21:07)
[2022-06-30] MEDS: CEFEPIME 2,000 MG in DEXT 5% WATER 100 ML IV SCH ×2 (08:49→20:46)
[2022-06-30] MEDS: ASPIRIN 81MG TABLET PO SCH (08:49)
[2022-06-30] MEDS: INSULIN GLARGINE 100 UNITS/ML SUBCUT SCH ×2 (09:16→21:07)
[2022-06-30] MEDS: ATORVASTATIN CALCIUM 40MG TABLET PO SCH (21:06)
[2022-07-01] VITALS: BP 110/49
[2022-07-01 04:00] VITALS: BP 100/48
[2022-07-01] MEDS: BLOOD SUGAR DIAGNOSTIC STRIP TEST SCH ×4 (06:15→20:52)
[2022-07-01] MEDS: INSULIN LISPRO 100 UNITS/ML SUBCUT SCH ×4 (06:20→21:04)
[2022-07-01 08:00] VITALS: BP 102/54
[2022-07-01] MEDS: CEFEPIME 2,000 MG in DEXT 5% WATER 100 ML IV SCH ×2 (08:48→20:55)
[2022-07-01] MEDS: ASPIRIN 81MG TABLET PO SCH (08:48)
[2022-07-01] MEDS: INSULIN GLARGINE 100 UNITS/ML SUBCUT SCH ×2 (09:10→21:03)
[2022-07-01 12:00] VITALS: BP 110/58
[2022-07-01 16:00] VITALS: BP 117/50
[2022-07-01 20:00] VITALS: BP 115/56
[2022-07-01] MEDS: ATORVASTATIN CALCIUM 40MG TABLET PO SCH (20:52)
[2022-07-02] VITALS: BP 109/70
[2022-07-02 04:00] VITALS: BP 101/70
[2022-07-02] MEDS: INSULIN LISPRO 100 UNITS/ML SUBCUT SCH ×2 (06:14→12:45)
[2022-07-02] MEDS: BLOOD SUGAR DIAGNOSTIC STRIP TEST SCH ×2 (06:14→12:45)
[2022-07-02 08:00] VITALS: BP 109/57
[2022-07-02] MEDS: ASPIRIN 81MG TABLET PO SCH (09:28)
[2022-07-02] MEDS: CEFEPIME 2,000 MG in DEXT 5% WATER 100 ML IV SCH (09:28)
[2022-07-02] MEDS: INSULIN GLARGINE 100 UNITS/ML SUBCUT SCH (09:29)
[2022-07-02 12:00] VITALS: BP 128/58
== END 2022-07-02 15:00 | DRG 720 ==
LOC: ER 09:16 → 8WST 11:52 → EDBEDREQTM 11:55 → EDBEDREQ 11:55 → ENRESERV 17:47
PROVIDERS: ADMIT Internal Medicine; ATTEND Internal Medicine
DX: A41.9 Sepsis, unspecified organism (principal); J96.00 Acute respiratory failure, unspecified whether with hypoxia or hypercapnia; R65.21 Severe sepsis with septic shock; G93.41 Metabolic encephalopathy; K81.0 Acute cholecystitis; E44.1 Mild protein-calorie malnutrition; E87.20 Acidosis, unspecified; I95.9 Hypotension, unspecified; N17.9 Acute kidney failure, unspecified; I12.9 Hypertensive chronic kidney disease with stage 1 through stage 4 chronic kidney disease, or unspecified chronic kidney disease; E11.22 Type 2 diabetes mellitus with diabetic chronic kidney disease; Z20.822 Contact with and (suspected) exposure to COVID-19; N18.9 Chronic kidney disease, unspecified; E66.9 Obesity, unspecified; D64.9 Anemia, unspecified; Z68.33 Body mass index [BMI] 33.0-33.9, adult; F20.9 Schizophrenia, unspecified; E03.9 Hypothyroidism, unspecified; G40.909 Epilepsy, unspecified, not intractable, without status epilepticus; E11.65 Type 2 diabetes mellitus with hyperglycemia; E86.0 Dehydration; F41.9 Anxiety disorder, unspecified
CPT/HCPCS: 36415; 36600; 70551; 71045; 71250; 74176; 76700; 80048; 80053; 80202; 81003; 82375; 82805; 82962; 83036; 83605; 83880; 84145; 84484; 85025; 85027; 87389; 87426; 87804; 93005; 97110; 97116; 97162; 97530; 99291; A6261; C1893; J0692; J1815; J2060; J2543; J3370; J7030; J7060

== ENCOUNTER 2022-10-15 14:57 | Emergency (ER) | payer OTHER ==
[~2022-10-15] VITALS: Ht 167.6 cm; Wt 68.0 kg
[2022-10-15 14:59] VITALS: BP 98/64
[2022-10-15] MEDS ORDERED: ACETAMINOPHEN 325MG TABLET PO ONE (15:45)
[2022-10-15] MEDS ORDERED: IBUPROFEN 400MG TABLET PO ONE (15:45)
[2022-10-15] MEDS ORDERED: LIDO1ADH23 TP (17:22)
[2022-10-15] MEDS ORDERED: TOPUD PO (17:22)
[2022-10-15] MEDS ORDERED: IBUPROFEN 400MG TABLET PO NR (17:45)
[2022-10-15] MEDS ORDERED: ACETAMINOPHEN 325MG TABLET PO NR (17:45)
== END 2022-10-16 09:41 | disposition home or self-care (01) ==
LOC: ER 14:57
DX: M25.532 Pain in left wrist (principal); M54.59 Other low back pain; I10 Essential (primary) hypertension; G89.11 Acute pain due to trauma; E11.9 Type 2 diabetes mellitus without complications
CPT/HCPCS: 72100; 72170; 73110; 82962; 99284

== ENCOUNTER 2023-01-24 09:56 | Emergency (ER) | payer OTHER ==
[~2023-01-24] VITALS: Ht 160 cm; Wt 79.0 kg
[~2023-01-24 09:56] MED LIST: LIDO1ADH23 TP; TOPUD PO; TRAZ-252 PO
[2023-01-24 10:00] VITALS: O2SAT 98
[2023-01-24 11:12] LABS: BASOPHILS % 0.7 % (0.0-2.0); HEMATOCRIT. 24.7 % (36.0-48.0); HEMOGLOBIN. 8.2 g/dL (12.0-16.0); LYMPHOCYTES % 24.4 % (20.0-50.0); MEAN CORPUSCULAR HEMOGLOBIN 27.7 pg (28.0-32.0); MEAN CORPUSCULAR VOLUME 83.4 fL (81.0-99.0); NEUTROPHILS % 66.9 % (40.0-76.0); PLATELET 285 x1000/uL (130-400); RED BLOOD CELL COUNT 2.96 mill/uL (4.2-5.4); RED CELL DISTRIBUTION WIDTH 15.7 % (11.6-14.6)
[2023-01-24 11:18] LABS: CHLORIDE 113 mEq/L (98-107)
[2023-01-24 11:27] LABS: ETHANOL BLOOD < 10 mg/dL (-10)
[2023-01-24] MEDS ORDERED: LEVETIRACETAM 1000MG PREMIX 100 ML IV ONE (12:30)
[2023-01-24 13:07] VITALS: BP 122/71; PULSE 59; RESP 18; TEMP 97.7
[2023-01-24] MEDS ORDERED: SODIUM CHLORIDE 0.9% 1,000 ML IV ONE (13:30)
[2023-01-24] MEDS ORDERED: LORAZEPAM 2MG/ML CPJ IV PRN (16:15)
[2023-01-24] MEDS ORDERED: DOCUSATE SODIUM 100MG CAPSULE PO PRN (16:15)
[2023-01-24] MEDS ORDERED: IPRATROPIUM/ALBUTEROL 0.5-3(2.5)MG/3ML NEB NEB PRN (16:15)
[2023-01-24] MEDS ORDERED: LORAZEPAM 0.5MG TABLET PO PRN (16:15)
[2023-01-24] MEDS ORDERED: ONDANSETRON HCL 4MG/2ML INJ IV PRN (16:15)
[2023-01-24] MEDS ORDERED: ACETAMINOPHEN 325MG TABLET PO PRN ×2 (16:15)
[2023-01-24] MEDS ORDERED: HYDROCODONE/ACETAMINOPHEN 5/325MG TABLET PO PRN (16:15)
[2023-01-24] MEDS ORDERED: CLONIDINE 0.1MG TABLET PO PRN (16:15)
[2023-01-24] MEDS ORDERED: LEVETIRACETAM 500MG PREMIX 100 ML IV SCH (17:00)
== END 2023-01-24 16:17 | disposition short-term general hospital (02) ==
LOC: ER 10:16 → EDBEDREQ 12:33 → EDBEDREQTM 12:33 → ER 16:17 → CANBEDREQ 21:25
DX: R56.9 Unspecified convulsions (principal); E11.9 Type 2 diabetes mellitus without complications; I10 Essential (primary) hypertension
CPT/HCPCS: 80053; 80320; 85025; 84484; 36415; 71045; 70450; 96361; 96365; 99285; J1953; J7030; G0480

== ENCOUNTER 2023-03-19 15:39 | Emergency (ER) | payer OTHER ==
[~2023-03-19] VITALS: Ht 172.7 cm; Wt 80.0 kg
[2023-03-19 15:41] VITALS: O2SAT 98
[2023-03-19] MEDS ORDERED: DIPHENHYDRAMINE 50MG CAPSULE PO ONE (16:00)
[2023-03-19] MEDS ORDERED: PREDNISONE 20MG TABLET PO ONE (16:00)
[2023-03-19] MEDS ORDERED: DIPHENHYDRAMINE 25MG CAPSULE PO NR (16:15)
[2023-03-19] MEDS ORDERED: DIPH25CA83 MT (17:23)
[2023-03-19] MEDS ORDERED: HYDR28OI2 TP ×3 (17:23→17:24)
[2023-03-19 23:03] VITALS: BP 126/76; PULSE 78; RESP 16; TEMP 98.6
== END 2023-03-19 23:22 ==
LOC: ER 15:39
DX: L30.9 Dermatitis, unspecified (principal); I10 Essential (primary) hypertension; E11.9 Type 2 diabetes mellitus without complications; Z86.59 Personal history of other mental and behavioral disorders; Z86.39 Personal history of other endocrine, nutritional and metabolic disease
CPT/HCPCS: 99283; Q0163; J7512

== ENCOUNTER 2024-01-05 11:10 | Emergency (ER) | payer MEDICAID, OTHER ==
[~2024-01-05] VITALS: Ht 167.6 cm; Wt 84.0 kg
[~2024-01-05 11:10] MED LIST changes: +DIPH25CA83 MT; +HYDR28OI2 TP
[2024-01-05 11:19] VITALS: O2SAT 98
[2024-01-05] MEDS: HYDROCODONE/ACETAMINOPHEN 5/325MG TABLET PO STA (13:05)
[2024-01-05 13:10] LABS: BASOPHILS % 0.6 % (0.0-2.0); HEMATOCRIT. 31.9 % (36.0-48.0); HEMOGLOBIN. 10.8 g/dL (12.0-16.0); LYMPHOCYTES % 28.6 % (20.0-50.0); MEAN CORPUSCULAR HEMOGLOBIN 29.1 pg (28.0-32.0); MEAN CORPUSCULAR HGB CONC 33.8 g/dL (31.0-37.0); MEAN CORPUSCULAR VOLUME 86.2 fL (81.0-99.0); MONOCYTES % 6.6 % (2.0-8.0); NEUTROPHILS % 64.2 % (40.0-76.0); PLATELET 276 x1000/uL (130-400); RED CELL DISTRIBUTION WIDTH 13.9 % (11.6-14.6); WHITE BLOOD COUNT 7.7 x1000/uL (4.5-11.0)
[2024-01-05 13:17] LABS: CALCIUM 9.3 mg/dL (8.7-10.4); CARBON DIOXIDE 24 mEq/L (21-32); INR 0.9; PROTHROMBIN TIME 10.4 sec (9.6-11.0)
[2024-01-05] MEDS: ONDANSETRON HCL 4MG/2ML INJ IV STA (13:21)
[2024-01-05 13:22] LABS: CREATININE 1.9 mg/dL (0.6-1.0); GLUCOSE 129 mg/dL (70-105)
[2024-01-05 13:23] LABS: UREA NITROGEN BLOOD 25 mg/dL (9-23)
[2024-01-05 13:28] LABS: TROPONIN I HIGH SENSITIVITY < 4 ng/L (3.0-34)
[2024-01-05 13:31] LABS: CHLORIDE 106 mEq/L (98-107); POTASSIUM 4.9 mEq/L (3.5-5.1); SODIUM 136 mEq/L (136-145)
[2024-01-05] MEDS ORDERED: FAMO20TA8 MT (14:04)
[2024-01-05] MEDS ORDERED: MAG-55 MT (14:04)
[2024-01-05 15:52] LABS: TROPONIN I HIGH SENSITIVITY < 4 ng/L (3.0-34)
[2024-01-05 17:00] VITALS: BP 107/66; PULSE 71; RESP 18; TEMP 98.6
== END 2024-01-05 17:38 | disposition home or self-care (01) ==
LOC: ER 13:00 → CANBEDREQ 14:07 → ER 17:38
DX: R10.84 Generalized abdominal pain (principal); R11.2 Nausea with vomiting, unspecified; R19.7 Diarrhea, unspecified; E11.9 Type 2 diabetes mellitus without complications; I10 Essential (primary) hypertension; F20.9 Schizophrenia, unspecified; E03.9 Hypothyroidism, unspecified; Z79.899 Other long term (current) drug therapy
CPT/HCPCS: 80048; 83690; 85025; 85610; 84484; 36415; 74176; 96374; 99285; J2405; Z7610 ×4

== ENCOUNTER 2024-02-19 15:53 | Emergency (ER) | payer MEDICAID ==
[~2024-02-19] VITALS: Ht 162.6 cm; Wt 80.0 kg
[~2024-02-19 15:53] MED LIST changes: +FAMO20TA8 MT; +MAG-55 MT
[2024-02-19 16:00] VITALS: O2SAT 99
[2024-02-19 16:28] LABS: BASOPHILS % 0.2 % (0.0-2.0); HEMATOCRIT. 31.3 % (36.0-48.0); HEMOGLOBIN. 10.2 g/dL (12.0-16.0); LYMPHOCYTES % 24.6 % (20.0-50.0); MEAN CORPUSCULAR HEMOGLOBIN 28.3 pg (28.0-32.0); MEAN CORPUSCULAR HGB CONC 32.7 g/dL (31.0-37.0); MEAN CORPUSCULAR VOLUME 86.7 fL (81.0-99.0); MEAN PLATELET VOLUME 8.1 fl (7.4-10.4); MONOCYTES % 6.9 % (2.0-8.0); NEUTROPHILS % 68.3 % (40.0-76.0); PLATELET 298 x1000/uL (130-400); RED BLOOD CELL COUNT 3.61 mill/uL (4.2-5.4); RED CELL DISTRIBUTION WIDTH 14.1 % (11.6-14.6); WHITE BLOOD COUNT 9.2 x1000/uL (4.5-11.0)
[2024-02-19 16:33] LABS: CHLORIDE 107 mEq/L (98-107); POTASSIUM 4.7 mEq/L (3.5-5.1); SODIUM 139 mEq/L (136-145)
[2024-02-19 16:34] LABS: CALCIUM 9.5 mg/dL (8.7-10.4); CARBON DIOXIDE 23 mEq/L (21-32)
[2024-02-19 16:39] LABS: CREATININE 2.3 mg/dL (0.6-1.0); GLUCOSE 219 mg/dL (70-105); UREA NITROGEN BLOOD 40 mg/dL (9-23)
[2024-02-19 16:50] LABS: TROPONIN I HIGH SENSITIVITY < 4 ng/L (3.0-34)
[2024-02-19 17:15] LABS: CLARITY URINE CLEAR (CLEAR); COLOR URINE YELLOW (YELLOW); GLUCOSE URINE 3+ (NEGATIVE); KETONES URINE NEGATIVE (NEGATIVE); LEUKOCYTE ESTERASE URINE NEGATIVE (NEGATIVE); NITRITE URINE POSITIVE (NEGATIVE); OCCULT BLOOD URINE NEGATIVE (NEGATIVE); PROTEIN URINE NEGATIVE (NEGATIVE); SPECIFIC GRAVITY URINE 1.026 (1.005-1.030); UROBILINOGEN URINE 0.2 E.U./dL (0.2-1.0)
[2024-02-19 17:30] LABS: BACTERIA URINE TRACE; RBC URINE 0-2 /hpf (0-2); SQUAMOUS EPITHELIAL CELL URINE 1+ /lpf (RARE/1+)
[2024-02-19 19:00] VITALS: TEMP 36.89184; O2SAT 99
[2024-02-19 19:38] LABS: TROPONIN I HIGH SENSITIVITY < 4 ng/L (3.0-34)
[2024-02-19] MEDS ORDERED: NITR-87 MT (21:26)
[2024-02-19] MEDS ORDERED: TOPUD MT (21:26)
[2024-02-19 21:33] VITALS: BP 133/69; PULSE 75; RESP 16
[2024-02-19] MEDS: HYDROCODONE/ACETAMINOPHEN 7.5/325MG TABLET PO ONE (21:33)
[2024-03-04] MEDS ORDERED: LISI10TA26 PO (13:21)
[2024-03-04] MEDS ORDERED: DOCU100T PO (13:21)
[2024-03-04] MEDS ORDERED: ARIP10TA56 PO (13:21)
[2024-03-04] MEDS ORDERED: CYAN100086 PO (13:21)
[2024-03-04] MEDS ORDERED: CLOZ100T13 PO (13:21)
[2024-03-04] MEDS ORDERED: FAMO20TA8 PO (13:21)
[2024-03-04] MEDS ORDERED: OMEP20TA23 PO (13:21)
[2024-03-04] MEDS ORDERED: CHOL400D7 PO (13:21)
[2024-03-04] MEDS ORDERED: PIOG15TA68 PO (13:21)
[2024-03-04] MEDS ORDERED: EMPA25TA PO (13:21)
[2024-03-04] MEDS ORDERED: SIMV-43 PO (13:21)
[2024-03-04] MEDS ORDERED: CLON0.5T23 PO (13:21)
== END 2024-02-20 01:43 | disposition home or self-care (01) ==
LOC: ER 15:53
DX: N39.0 Urinary tract infection, site not specified (principal); E11.9 Type 2 diabetes mellitus without complications; I10 Essential (primary) hypertension; Z86.39 Personal history of other endocrine, nutritional and metabolic disease; Z79.899 Other long term (current) drug therapy; Z86.59 Personal history of other mental and behavioral disorders
CPT/HCPCS: 80048; 81003; 83880; 85025; 84484; 36415; 71045; 93005; 99285; Z7610 ×2